=== PATIENT | male | born 1980 | race Caucasian/White ===

== ENCOUNTER 2022-09-08 10:11 | Emergency (ER) | payer MEDICAID ==
[~2022-09-08] VITALS: Ht 170.2 cm; Wt 90.0 kg
[2022-09-08 10:40] VITALS: BP 132/76
[2022-09-08] MEDS ORDERED: dexamethasone sod phosphate 10mg/ml inj IM STA (12:05)
[2022-09-08] MEDS ORDERED: HYDR-3686 PO (12:18)
== END 2022-09-08 12:57 | disposition home or self-care (01) ==
LOC: ER 10:12
DX: T78.40XA Allergy, unspecified, initial encounter (principal); X58.XXXA Exposure to other specified factors, initial encounter
CPT/HCPCS: 96372; 99283; J1100

== ENCOUNTER 2022-12-18 07:58 | Emergency (ER) | payer MEDICAID ==
[~2022-12-18] VITALS: Ht 183.5 cm; Wt 100.0 kg
[2022-12-18 08:02] VITALS: BP 125/74
[2022-12-18] MEDS ORDERED: diphenhydrAMINE 25mg capsule PO ONE (08:20)
[2022-12-18] MEDS ORDERED: dexamethasone sod phosphate 10mg/ml inj IM STA (08:20)
[2022-12-18] MEDS ORDERED: famotidine 20mg tablet PO ONE (08:20)
[2022-12-18] MEDS ORDERED: DIPH25CA83 PO (08:26)
[2022-12-18] MEDS ORDERED: FAMO-128 PO (08:26)
[2022-12-18] MEDS ORDERED: PRED20TA PO (08:26)
== END 2022-12-18 08:42 | disposition home or self-care (01) ==
LOC: ER 07:59
DX: L50.8 Other urticaria (principal); Z79.899 Other long term (current) drug therapy
CPT/HCPCS: 96372; 99283; J1100; Q0163